=== PATIENT | female | born 1945 | race Caucasian/White ===

== ENCOUNTER 2020-02-01 | Outpatient (RCR) | payer MEDICARE, OTHER, BC, SELFPAY | END 2020-02-03 | disposition home or self-care (01) | LOC: WPT | PROVIDERS: PCP Physician Assistant Medical; Referring Provider Neurological Surgery; Visit Provider Neurological Surgery | DX: M47.816 Spondylosis without myelopathy or radiculopathy, lumbar region (principal); M51.16 Intervertebral disc disorders with radiculopathy, lumbar region | CPT/HCPCS: 97110; 97112; 97163; G0283 ==

== ENCOUNTER 2020-02-29 06:00 | Outpatient (RCR) | payer MEDICARE, SELFPAY, OTHER | END 2020-03-30 23:59 | disposition home or self-care (01) | LOC: WPT 06:00 | PROVIDERS: PCP Physician Assistant Medical; Referring Provider Neurological Surgery; Visit Provider Neurological Surgery | DX: M47.816 Spondylosis without myelopathy or radiculopathy, lumbar region (principal); M51.16 Intervertebral disc disorders with radiculopathy, lumbar region | CPT/HCPCS: 97110; 97112; G0283 ==

== ENCOUNTER 2020-03-31 06:00 | Outpatient (RCR) | payer MEDICARE, OTHER, SELFPAY | END 2020-04-30 23:59 | disposition home or self-care (01) | LOC: WPT 06:00 | PROVIDERS: PCP Physician Assistant Medical; Referring Provider Neurological Surgery; Visit Provider Neurological Surgery | DX: M47.816 Spondylosis without myelopathy or radiculopathy, lumbar region (principal); M51.16 Intervertebral disc disorders with radiculopathy, lumbar region | CPT/HCPCS: 97110; G0283 ==

== ENCOUNTER 2021-11-23 17:29 | Emergency (ER) | payer MEDICARE, OTHER, SELFPAY ==
[2021-11-23 17:59] VITALS: BP 157/108; PULSE 75; RESP 20; TEMP 36.9; O2SAT 95; BMI 28.3
--- NOTE | 2021-11-23 18:11 | W.ED.DENTAL ---
Documented by User: REGINA Beltrán 11/23/21 19:17 HPI - Dental/Oral General: Chief complaint: Dental/Oral Stated complaint: Sore on tongue bleeding Time Seen by Provider: 11/23/21 18:08 History of Present Illness: 75-year-old female comes in today for complaints of bleeding lesion on the tongue. Patient appears nontoxic. Patient appears no acute distress. No significant bleeding is noted. Patient does have some bloody tinged oral mucosa. Small lesion is noted to the central tongue that is oozing blood. Patient reports a history of prior lesion that had leaked and had to be resected by a surgeon. This lesion was to the lip. 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 Patient takes medication for blood pressure, denies any oral anticoagulants or antiplatelet agents, patient had been a previous smoker. Patient appears nontoxic. Patient appears in no pain. Patient denies liver problems. Review of Systems General: Reports: 10 or more systems reviewed and unremarkable except in HPI and below ENMT: Reports: oral sores (Bleeding lesion tongue) and other Card: Denies: chest pain Resp: Denies: dyspnea GI: Reports: abdominal pain Physical Exam Const: COMMON NORMALS: alert HENMT: COMMON NORMALS: normocephalic HEAD & SCALP: normocephalic MOUTH: tongue abnormal lesion (Oozing blood) Neck/C-Spine: COMMON NORMALS: full ROM Resp: COMMON NORMALS: normal respiratory effort and clear to auscultation bilaterally AUSCULTATION: clear to auscultation bilaterally Cardio: COMMON NORMALS: regular rate and regular rhythm RATE: regular rate RHYTHM: regular rhythm GI: COMMON NORMALS: Soft to palpation and non-tender PALPATION: Yes Soft to palpation Extremity: COMMON NORMALS: normal to inspection Neuro: SENSORIUM/ORIENTATION: Yes alert Skin: COMMON NORMALS: no rashes or lesions noted and no mottling GENERAL SKIN EXAM: no rashes or lesions noted Procedures Laceration Laceration 1: Site: lip (Tongue) Size (cm): 0.2 Description: irregular Depth: simple, single layer Local Anesthetic: lidocaine 1% Amount of anesthesia used (mL): 1 Skin layer closed with: vicryl Size (cm): 5-0 Number of sutures: 1 Technique: horizontal mattress Course Vital Signs: Vital signs: Vital Signs Temperature 98.5 F 11/23/21 17:59 Pulse Rate 75 11/23/21 17:59 Respiratory Rate 20 H 11/23/21 17:59 Blood Pressure 157/108 11/23/21 17:59 Pulse Oximetry 95 11/23/21 17:59 MDM - Dental/Oral Medical Decision Making Patient comes in with a oozing lesion to the middle of the tongue. No significant laceration is noted. Wound continues to ooze blood. Also note multiple telangiectases to the oral mucosa. Differential diagnosis includes liver disease, hereditary telangiectasis, mechanical injury. 1 horizontal mattress suture was applied to the tongue to stop the oozing of blood from the lesion. Patient tolerated well. Recommend follow-up with jewel bearing facer for further evaluation and treatment of oral lesions. Discharge Plan Discharge Patient Disposition: Home Clinical Impression: Telangiectasia of face Condition: Stable Discharge Orders: Discharge ED (Routine); Ordered 11/23/21 Ordered By: Kwame Kelsey Referrals: Maribeth Kramer [Primary Care Provider] - Discharge Diet: Usual diet Discharge Activity: Increase activity as tolerated Patient Instructions: Mouth Care (ED) Activity Restrictions/Additional Instructions: Soft diet for next 24 hours. Eat ice cream, Jell-O's, or other mechanically soft foods. Drink plenty of water. Case management will contact you for follow-up appointment with jewel bearing facer. Return to ER for high fever or new concerns. 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 No significant laceration is noted. Wound continues to ooze blood. Also note multiple telangiectases to the oral mucosa. Differential diagnosis includes liver disease, hereditary telangiectasis, mechanical injury. 1 horizontal mattress suture was applied to the tongue to stop the oozing of blood from the lesion. Patient tolerated well. Recommend follow-up with jewel bearing facer for further evaluation and treatment of oral lesions. This patient was originally seen by REGINA Obregon.? I agree with his history, evaluation, and treatment. Discharge Plan Discharge Patient Disposition: Home Clinical Impression: Telangiectasia of face Condition: Stable Discharge Orders: Discharge ED (Routine); Ordered 11/23/21 Ordered By: Kwame Kelsey Referrals: Maribeth Kramer [Primary Care Provider] - Discharge Diet: Usual diet Discharge Activity: Increase activity as tolerated Patient Instructions: Mouth Care (ED) Activity Restrictions/Additional Instructions: Soft diet for next 24 hours. Eat ice cream, Jell-O's, or other mechanically soft foods. Drink plenty of water. Case management will contact you for follow-up appointment with jewel bearing facer. Return to ER for high fever or new concerns. Coding Level of Care Code ED Bakery Machine Mechanic Supervisor for Chg Fwd Exam Comprehensive
[2021-11-23] MEDS: cetacaine Spray 5 gm Can 1 SPRAY TOPICAL (18:57)
--- NOTE | 2021-11-25 10:46 | DCPLANNER ---
Addendum entered by Judith Esparza 01/08/22 21:19: Patient had a follow up appointment scheduled with ENT - patient did attend appointment. Addendum entered by Judith Esparza 11/28/21 07:17: Patient has an appointment scheduled for Friday, December 03, 2021 at 11:[address] Feliciano. Clinic will call patient with appointment information. Original Note: brokerage manager had message to schedule a follow up appointment for patient with [facility] ENT clinic. brokerage manager sent patients information to the [facility] ENT front office staff thru [employer] task/message system. Patients information will be printed and reviewed. Clinic will call patient with appointment information.
== END 2021-11-23 19:21 | disposition home or self-care (01) ==
PROVIDERS: Emergency Provider Nurse Practitioner Family; PCP Nurse Practitioner Family
DX: I78.1 Nevus, non-neoplastic (principal)
CPT/HCPCS: 41250; 99283

== ENCOUNTER → 2021-12-03 10:41 | Outpatient (BNVA) | payer MEDICARE, OTHER, SELFPAY | PROVIDERS: PCP Nurse Practitioner Family; Referring Provider Nurse Practitioner Family; Visit Provider Otolaryngology | DX: K14.8 Other diseases of tongue (principal); Z87.891 Personal history of nicotine dependence | CPT/HCPCS: 99203 ==

== ENCOUNTER 2021-12-12 09:38 | Day surgery (SDC) | payer MEDICARE, OTHER, SELFPAY ==
[2021-12-11 12:51] VITALS: BMI 27.8
[2021-12-12] VITALS (9 sets, daily range): BP systolic 135–176; BP diastolic 71–99; PULSE 60–94; RESP 14–18; TEMP 36.2–36.8; O2SAT 90–98
--- NOTE | 2021-12-12 10:16 | W.PM.OPSUD ---
Surgery/Procedure H&P Update DATE OF PROCEDURE: December 12, 2021 DATE H&P PERFORMED: 12/03/21 H&P UPDATE INFORMATION: I have reviewed H&P completed within last 30 days, I have examined patient prior to procedure and No changes to prior documentation CHANGES TO PREVIOUS DOCUMENTATION: No changes PREOP DIAGNOSIS: Hemorrhagic ventral tongue lesion PRIMARY INDICATION FOR PROCEDURE: Left upper tongue surface hemorrhagic lesion which is recurrent PLANNED PROCEDURE: Operation Date: 12/12/21 11:15 Proposed Procedures p Excision of Ventral Tongue lesion with closure 13642/k14.8(Not Applicable) - Chance Feliciano MD
--- NOTE | 2021-12-12 10:53 | ANES.PREANE2 ---
Pre-Anesthetic Assessment Height/Weight: Height 1.6 m Weight 71.214 kg Temp Pulse Resp BP Pulse Ox 98.2 F 60 16 176/99 97 12/12/21 10:05 12/12/21 10:05 12/12/21 10:05 12/12/21 10:05 12/12/21 10:05 Preop Diagnosis: Hemorrhagic ventral tongue lesion Operation Date: 12/12/21 11:15 Proposed Procedures p Excision of Ventral Tongue lesion with closure 26003/k14.8(Not Applicable) - Chance Feliciano MD Familial anesthetic complications: None Was Beta Bella taken within 24 hours: N/A Was Clonidine taken within 24 hours: N/A Last intake: Intake Last Liquid Date 12/11/21 Last Liquid Time 22:00 Last Solid Date 12/11/21 Last Solid Time 19:00 Social No alcohol and No tobacco Exam alert, oriented x 3, clear to auscultation bilaterally and regular rate & rhythm Airway Mallampati: Class I Dentition: false Pulmonary Sleep Apnea CV/HEM None reported None reported Hepatic None reported GI None reported Metabolic Diabetes Mellitus, Hyperlipidemia and Thyroid Disease [facility] [place] None reported Neuropsych None reported Anesthetic Plan ASA status: 3 Anesthesia: General Risk of > 500 ml blood loss (7ml/kg in children): No Medications/Allergies Home Medications Medication Instructions Recorded Confirmed Last Taken Type alprazolam 0.25 mg tablet 1 tab PO PRN PRN 12/03/21 12/12/21 12/09/21 History atorvastatin 40 mg tablet (Lipitor) 40 mg PO DAILY 12/03/21 12/12/21 12/11/21 History levothyroxine 88 mcg capsule 88 mcg PO DAILY 12/03/21 12/12/21 12/12/21 05:00 History metformin 500 mg tablet 500 mg PO DAILY 12/03/21 12/12/21 12/11/21 History nystatin 500,000 unit tablet 1 unit PO PRN PRN 12/03/21 12/11/21 Unknown History quinapril 40 mg tablet (Accupril) 40 mg PO DAILY 12/03/21 12/12/21 12/12/21 07:00 History Allergies Allergy/AdvReac Type Severity Reaction Status Date / Time No Known Allergies Allergy Verified 12/11/21 12:43 [facility] Anesthesia Medical History Hyperthyroidism Surgical History History of tonsillectomy and adenoidectomy Previous back surgery Family History Other CAD (coronary artery disease) Cancer Social History Smoking and tobacco status: former smoker (pack a day quit 14 yrs ago ) Data Anesthesia Cardiac Studies: No Data to Display
[2021-12-12] MEDS: sodium chloride 0.9% 1,000 ML 30 ML IV (11:06)
--- NOTE | 2021-12-12 11:08 | ECG_ITS ---
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 Measurements Intervals [place] Run Rate: 54 P: 34 WA: 245 QRS: -19 QRSD: 120 T: 32 QT: 433 QTc: 413 Interpretive Statements SINUS BRADYCARDIA WITH FIRST DEGREE AV BLOCK WITH OCCASIONAL VENTRICULAR PREMATURE COMPLEXES MODERATE INTRAVENTRICULAR CONDUCTION DELAY [110+ ms QRS DURATION] NONSPECIFIC ST & T-WAVE ABNORMALITY No previous ECG available for comparison Electronically Signed On 12-12-2021 18:13:31 CDT by Johnny Burkett M.D. [email or web address] [id number]
[2021-12-12 11:16] LABS: Glucose Point of Care 104 mg/dL (70-110)
--- NOTE | 2021-12-12 12:41 | PM.OP ---
Operative Report Date of procedure: December 12, 2021 Pre-op diagnosis: Preop Diagnosis Hemorrhagic ventral tongue lesion Post-op diagnosis: Central tongue lesion benign. Post-op findings: Masslike lesion central upper surface of tongue to the left of midline. Mass has remaining suture from previous excision from another physician. Procedure done: Excision of tongue lesion with repair Implants: No implants. Specimens removed/disposition: Central tongue lesion with surrounding normal tissue. Pathology: Frozen section indicated benign mixed debris and benign muscle. Surgeon: Chance Feliciano MD Anesthesia: General and Local Estimated blood loss (mL): 15 Complications: No complications encountered. Findings: The patient's superior surface tongue lesion centrally located and just to the left of midline with remaining suture in its central portion is about 8 mm in diameter and raised slightly and appears to be a discrete spherical type mass. Firm on palpation and tender to touch. Brief History: 75-year-old female patient has had a vascular lesion that bleeds easily on the upper surface of the left central tongue. She had it biopsied and then excised by another physician. The suture from the last procedure is still in place. It has regrown and enlarged in size now bigger than it was to begin with. There is a masslike effect surrounding the suture. It is somewhat spheroid in shape. It is firm to touch and tender to touch. Therefore the patient is being brought to the operating room to undergo complete excision of this lesion with some surrounding all tongue as a margin. This will be done with general and local anesthesia. The procedure its risks and complications were explained in detail in the office setting. These risks included bleeding infection numbness scarring swelling bruising recurrence and need for additional treatment as well as anesthetic risk such as heart attack or stroke or not surviving the surgery. With these things understood informed consent was granted and witnessed. Procedure: Description of procedure: The patient was placed on the operating table in the supine position. Adequate general endotracheal tube anesthesia was obtained. The patient was given Ancef IV for prophylaxis. The table was rotated 90 degrees. The eyes were taped shut and a head drape was applied in usual fashion. A timeout was accomplished identifying the patient date of plan procedure allergies fire risk and medications given. A towel clip was placed to the median raphae of the tongue and used to retract the tongue outward. Sponges were placed between the upper and lower alveolar ridges to hold the mouth open and sponges were placed to the central posterior oropharyngeal area for protection of the airway. The area surrounding the mass in the deep area was infiltrated with a total of 5.1 mL of 2% Xylocaine with 1-100,000 epinephrine. After several minutes a fusiform excision pattern was created with a 15 blade carrying it down through the T-spine area and the mucous membrane and then down into the surrounding musculature. This was then dissected free taking some of the normal musculature of the tongue with the mass. This was sent to the pathologist for frozen section diagnosis. While that was pending bipolar cautery was used to obtain complete hemostasis. Moist sponge was then placed while the frozen section was pending. The frozen section returned as unidentified debris with normal surrounding musculature. No definitive diagnosis was made in regards to the actual mass. No malignant cells were identified. After cleansing the area and making sure that all bleeding was controlled, a single layer surface and muscular layer closure with 3-0 Vicryl running suture was placed. With this accomplished and with no sign of active bleeding all sponges were removed from the mouth and oropharynx. The area was suctioned clean. Patient was returned to anesthesia for wake-up and extubation. Patient tolerated the procedure well and estimated blood loss of 15 mL or less and arrived in recovery in stable condition.
--- NOTE | 2021-12-12 13:20 | ANE.PACU2 ---
Inpatient post-anesthesia follow up: Airway intact: Yes Vital signs: Temperature 97.1 F Pulse Rate 78 Respiratory Rate 18 Blood Pressure 153/71 Pulse Oximetry 90 Oxygen Delivery Me thod Room Air Oxygen Flow Rate 6 Fraction of Inspir ed Oxygen Hydration adequate: Yes Nausea and vomiting: No Pain level: 1 Mental status: Baseline
[2021-12-12] MEDS: cetylpyridinium Lozenge 1 EACH MUCOUS MEM (13:46)
--- NOTE | 2021-12-12 13:47 | SUR.PHASEII ---
tolerating ice water. no active bleeding noted.
== END 2021-12-12 14:20 | disposition home or self-care (01) ==
PROVIDERS: PCP Nurse Practitioner Family; Visit Provider Otolaryngology
PROC: (CPT 41112; principal; 2021-12-12 11:05)
DX: K13.70 Unspecified lesions of oral mucosa (principal); G47.30 Sleep apnea, unspecified; E11.9 Type 2 diabetes mellitus without complications; E78.5 Hyperlipidemia, unspecified; Z79.84 Long term (current) use of oral hypoglycemic drugs; E03.9 Hypothyroidism, unspecified; Z87.891 Personal history of nicotine dependence
CPT/HCPCS: 41112; 36416; 82962; 88305; 88331; 93005; J0330; J0690; J1100; J2405; J2704; J3010; J7030

== ENCOUNTER → 2021-12-31 10:45 | Outpatient (BNVA) | payer MEDICARE, OTHER, SELFPAY | PROVIDERS: PCP Nurse Practitioner Family; Visit Provider Otolaryngology | DX: K14.8 Other diseases of tongue (principal); Z87.891 Personal history of nicotine dependence | CPT/HCPCS: 99024 ==